=== PATIENT | male | born 1965 | race Caucasian/White ===

== ENCOUNTER 2024-04-14 18:19 | Inpatient (IN) | payer OTHER ==
[~2024-04-14] VITALS: Ht 182.9 cm; Wt 225.9 kg
[~2024-04-14 18:19] MED LIST: CALCAVITD PO; DULO60 PO; GABA300 PO; GLIP5 PO; Hair, Skin & N1 EACH PO; LISHYD2025 PO; METF500 PO; METO50ER PO; OXAP600 PO; SITA100T2 PO; TEMA30 PO
[2024-04-14] MEDS ORDERED: Lactated Ringer's 1,000 ML IV ONE (18:35)
[2024-04-14 18:50] LABS: Base Excess Venous 1.4 mmol/L; Bicarbonate Venous 25.7 mmol/L (24.0-30.0); PCO2 Venous 35.9 mmHg (38-42); pH Blood Venous 7.46 (7.34-7.37)
[2024-04-14 19:15] LABS: BASOPHILS ABSOLUTE AUTO 0.08 K/mm3 (0.00-0.23); BASOPHILS PERCENT AUTO 1 % (0-2); EOSINOPHILS ABSOLUTE AUTO 0.04 K/mm3 (0.00-0.68); EOSINOPHILS PERCENT AUTO 0 % (0-6); Hematocrit 45.6 % (37.0-53.0); Hemoglobin 14.7 g/dL (13.5-17.5); IMMATURE GRAN ABSOLUTE AUTO 0.05 K/mm3 (0.00-0.10); IMMATURE GRAN PERCENT AUTO 0 % (0-1); LYMPHOCYTES PERCENT AUTO 7 % (21-46); MONOCYTES ABSOLUTE AUTO 1.73 K/mm3 (0.16-1.47); MONOCYTES PERCENT AUTO 11 % (4-13); Mean Corpuscular HGB 28.1 pg (26.0-34.0); Mean Corpuscular HGB Conc 32.2 g/dL (31.5-36.5); Mean Corpuscular Volume 87 fL (80-100); NEUTROPHILS ABSOLUTE AUTO 12.17 K/mm3 (1.96-9.15); NEUTROPHILS PERCENT AUTO 80 % (41-73); Platelet Count 286 K/mm3 (150-400); RDW Coefficient Variation 15.3 % (11.7-14.2); RDW Standard Deviation 49.1 fL (35.1-46.3); Red Blood Cell Count 5.23 M/mm3 (4.30-5.90); White Blood Cell Count 15.17 K/mm3 (4.00-11.30)
[2024-04-14 19:16] LABS: Beta-hydroxybutyrate 6.1 mg/dL (0.2-2.8); Free Thyroxine 1.56 ng/dL (0.70-1.60); Magnesium, Blood 1.6 mg/dL (1.6-2.4)
[2024-04-14 19:17] LABS: Thyroid Stimulating Hormone 2.43 uIU/mL (0.360-4.800)
[2024-04-14] MEDS ORDERED: CefTRIAXone Sodium 1,000 MG in NS 100 ML IV ONE (19:50)
[2024-04-14 19:57] LABS: Albumin, Blood 2.8 g/dL (3.4-5.0); Albumin/Globulin Ratio 0.6 (0.8-1.8); Bilirubin, Total 1.1 mg/dL (0.1-1.0); Bun/Creatinine Ratio 22.2 (12.0-20.0); Calcium, Blood 8.9 mg/dL (8.5-10.1); Creatinine, Blood 1.62 mg/dL (0.60-1.20); Globulin, Blood 4.4 g/dL (2.2-4.0); Potassium, Blood 4.2 mmol/L (3.5-5.5); Total Protein, Blood 7.2 g/dL (6.4-8.2)
[2024-04-14] MEDS ORDERED: NS 1,000 ML IV SCH (20:15)
[2024-04-14 20:25] LABS: Source, Urine Clean Catch
[2024-04-14 20:47] LABS: Appearance, Urine Hazy (Clear); Bilirubin, Urine Neg (Neg); Blood, Urine 4+ (Neg); Color, Urine Yellow (P-Yellow); Glucose Qualitative, Urine 4+ (Neg); Ketones, Urine 1+ (Neg); Leukocyte Esterase, Urine 1+ (Neg); Nitrite, Urine Neg (Neg); Protein, Urine 3+ (Neg); Specific Gravity, Urine 1.015 (1.003-1.022); Urobilinogen, Urine 1+ (Normal)
[2024-04-14 20:59] LABS: Amorphous Mod (0-Heavy); Hyaline Casts 0-2 /lpf (0-2); Mucus Light (0-Heavy)
[2024-04-14 21:00] LABS: Bacteria Many /hpf; Squamous Epithelial Cells Few /hpf (Few)
[2024-04-14 21:01] LABS: Transitional Epithelial Cells Rare /hpf (0-Rare)
[2024-04-14 22:11] LABS: CORONAVIRUS COVID-19 AG Negative (NEGATIVE); INFLUENZA A AG Negative (NEGATIVE); INFLUENZA B AG Negative (NEGATIVE)
[2024-04-14] MEDS ORDERED: PRED5 PO (23:22)
[2024-04-14] MEDS ORDERED: LEVSOD75 PO (23:23)
[2024-04-14] MEDS ORDERED: TRAM50 PO (23:24)
[2024-04-14] MEDS ORDERED: DESV50 PO (23:26)
[2024-04-14] MEDS ORDERED: CATAPRES0.1 MG PO (23:27)
[2024-04-14] MEDS ORDERED: DULO60 PO (23:27)
[2024-04-14] MEDS ORDERED: FARXIGA10 MG PO (23:28)
[2024-04-14] MEDS ORDERED: ATOR20 PO (23:29)
[2024-04-14] MEDS ORDERED: FLU VACC TS2024-25(6MOS UP)/PF 45 MCG/0.5 ML SYRINGE IM ONE (23:45)
[2024-04-15 00:10] VITALS: BP 154/89
[2024-04-15] MEDS ORDERED: Magnesium Sulf 2 GM/Water 50ML 50 ML IV ONE (00:10)
[2024-04-15] MEDS ORDERED: NS 1,000 ML IV SCH ×3 (00:45→05:25)
[2024-04-15] MEDS ORDERED: FentaNYL Citrate 50 MCG/ML 2 ML Injection IV PRN (01:00)
[2024-04-15] MEDS ORDERED: Miconazole Nitrate 2% 85 GM PWD TOP PRN (01:05)
[2024-04-15] MEDS ORDERED: GLIP5 PO (01:39)
[2024-04-15] MEDS ORDERED: LODOCO0.5 MG PO (01:42)
[2024-04-15] MEDS ORDERED: PIOG30 PO (01:44)
[2024-04-15] MEDS ORDERED: OXAP600 PO (01:45)
[2024-04-15] MEDS ORDERED: ASPIR 8181 M1 PO (01:47)
[2024-04-15] MEDS ORDERED: LANS15EC PO (01:47)
[2024-04-15] MEDS ORDERED: TOPROL XL50 MG PO (01:49)
[2024-04-15 03:49] VITALS: BP 139/86
[2024-04-15] MEDS ORDERED: HYDROmorphone HCl/Pf 1MG SYR IV PRN (04:40)
[2024-04-15] MEDS ORDERED: Insulin Human Lispro 100 Units/ML 3ML Syringe SC SCH (07:30)
[2024-04-15 07:31] VITALS: BP 145/105
[2024-04-15] MEDS ORDERED: Lactated Ringer's 1,000 ML IV SCH ×2 (08:00→19:00)
--- NOTE | 2024-04-15 08:06 | NUR ---
SHIFT SUMMARY; PATIENT WAS ADMITTED ONTO A NON-BARIATRIC BED. NOT AVAILABLE. ALL WOUNDS SOAKED AND CLEANSED WITH WOUND MANAGING DIRECTOR ATLAS. DRESSED . AT BEDSIDE ABLE TO HELP WITH HISTORY & MEDS. BRAVO CATH PLACED BY MARCUS WILSON, NO URINE RETURNED, EVEN BY END OF SHIFT. IV FLUIDS INFUSING THRU VERY TINY IV, REMAINS PATENT BUT CONCERNING. PATIENT ABLE TO EAT BEFORE MEDICATEING FOR PAIN AND CPAP STARTED.
[2024-04-15] MEDS ORDERED: Heparin Sodium 5000 Units/ML 1ML MDV SC SCH (09:00)
[2024-04-15] MEDS ORDERED: Famotidine 10 MG/ML 2ML Vial IV SCH (09:00)
[2024-04-15] MEDS ORDERED: Lactobacil 2-S.Thermo-Bifido 1 1 Cap PO SCH (09:00)
[2024-04-15 09:34] LABS: BASOPHILS ABSOLUTE AUTO 0.11 K/mm3 (0.00-0.23); BASOPHILS PERCENT AUTO 1 % (0-2); EOSINOPHILS ABSOLUTE AUTO 0.14 K/mm3 (0.00-0.68); EOSINOPHILS PERCENT AUTO 1 % (0-6); Hemoglobin 14.2 g/dL (13.5-17.5); IMMATURE GRAN ABSOLUTE AUTO 0.05 K/mm3 (0.00-0.10); IMMATURE GRAN PERCENT AUTO 0 % (0-1); LYMPHOCYTES ABSOLUTE AUTO 1.96 K/mm3 (0.84-5.20); LYMPHOCYTES PERCENT AUTO 14 % (21-46); MONOCYTES ABSOLUTE AUTO 1.97 K/mm3 (0.16-1.47); MONOCYTES PERCENT AUTO 14 % (4-13); Mean Corpuscular HGB 28.7 pg (26.0-34.0); Mean Corpuscular Volume 87 fL (80-100); Mean Platelet Volume 11.7 fL (9.1-12.4); NEUTROPHILS ABSOLUTE AUTO 10.27 K/mm3 (1.96-9.15); NEUTROPHILS PERCENT AUTO 71 % (41-73); Platelet Count 319 K/mm3 (150-400); RDW Coefficient Variation 15.7 % (11.7-14.2); Red Blood Cell Count 4.95 M/mm3 (4.30-5.90)
[2024-04-15] MEDS ORDERED: CeFAZolin Sodium 2,000 MG in NS 100 ML IV SCH (10:00)
[2024-04-15 10:27] LABS: Albumin, Blood 2.6 g/dL (3.4-5.0); Albumin/Globulin Ratio 0.6 (0.8-1.8); Bilirubin, Total 0.8 mg/dL (0.1-1.0); Bun/Creatinine Ratio 22.4 (12.0-20.0); Creatinine, Blood 1.52 mg/dL (0.60-1.20); Globulin, Blood 4.2 g/dL (2.2-4.0); Potassium, Blood 4.1 mmol/L (3.5-5.5); Total Protein, Blood 6.8 g/dL (6.4-8.2)
[2024-04-15] MEDS ORDERED: NS 250 ML IV PRN ×2 (11:20→23:35)
[2024-04-15] MEDS ORDERED: TraMADol HCl 50 MG Tab PO PRN (12:30)
[2024-04-15] MEDS ORDERED: Temazepam 15 MG Cap PO PRN (12:35)
[2024-04-15 15:28] VITALS: BP 158/88
[2024-04-15] MEDS ORDERED: Lisinopril 10 MG Tab PO SCH (16:00)
[2024-04-15] MEDS ORDERED: Metoprolol Succinate 50 MG TABCR PO SCH (16:00)
--- NOTE | 2024-04-15 18:36 | NUR ---
SHIFT SUMMARY PT CONT LEVEL OF CARE. PT NOTED TO BE A&OX4 AND MAX ASSIST. BRAVO CHANGED THIS SHIFT D/T BRAVO NOT DRAINING PROPRER AND PT NOTED TO HAVE 800ML+ IN HIS BLADDER. PT WOUNDS CHANGED THIS SHIFT PER ORDERS RECEIVED BY PHYSICIAN. PT MOVED TO ROOM 352 FROM ROOM 345 THIS SHIFT PT NEED A ROOM WITH A DOUBLE LIFT. PT NOTED TO WORK WITH THERAPY THIS SHIFT.
[2024-04-15 19:48] VITALS: BP 157/80
[2024-04-15] MEDS ORDERED: Acetaminophen 325 MG TABLET PO PRN (20:20)
[2024-04-15] MEDS ORDERED: Gabapentin 300 MG Cap PO SCH (21:00)
--- NOTE | 2024-04-16 01:00 | NUR ---
HOSPITALIST CONTACTED. HOSPITALIST CONTACTED D/T PATIENT CHANGE IN CONDITION-PATIENT HAS CHANGE IN COGNITION-WHEN ASKED WHERE HE WAS PATIENT RESPONDED "[facility]" REORIENTED PATIENT THAT HE IS IN [facility]-PATIENT REPORTS THAT HE "WAS SEEING ART ON THE CEILING". HOSPITALIST NOTIFIED OF CHANGE AND REQUESTED TO COME SEE PATIENT. [address] ZAPATA ORDERED LABS-SEE LABS. DR. ZAPATA ORDERED FOR ECHO AND PALLIATIVE CARE ORDER.
[2024-04-16 01:47] LABS: BASOPHILS ABSOLUTE AUTO 0.12 K/mm3 (0.00-0.23); BASOPHILS PERCENT AUTO 1 % (0-2); EOSINOPHILS ABSOLUTE AUTO 0.43 K/mm3 (0.00-0.68); EOSINOPHILS PERCENT AUTO 4 % (0-6); Hematocrit 41.1 % (37.0-53.0); Hemoglobin 13.2 g/dL (13.5-17.5); IMMATURE GRAN ABSOLUTE AUTO 0.12 K/mm3 (0.00-0.10); IMMATURE GRAN PERCENT AUTO 1 % (0-1); LYMPHOCYTES ABSOLUTE AUTO 2.14 K/mm3 (0.84-5.20); LYMPHOCYTES PERCENT AUTO 20 % (21-46); MONOCYTES ABSOLUTE AUTO 1.31 K/mm3 (0.16-1.47); MONOCYTES PERCENT AUTO 12 % (4-13); Mean Corpuscular HGB 28.3 pg (26.0-34.0); Mean Corpuscular HGB Conc 32.1 g/dL (31.5-36.5); Mean Corpuscular Volume 88 fL (80-100); Mean Platelet Volume 11.8 fL (9.1-12.4); NEUTROPHILS ABSOLUTE AUTO 6.76 K/mm3 (1.96-9.15); NEUTROPHILS PERCENT AUTO 62 % (41-73); Platelet Count 268 K/mm3 (150-400); RDW Coefficient Variation 15.8 % (11.7-14.2); Red Blood Cell Count 4.66 M/mm3 (4.30-5.90); White Blood Cell Count 10.88 K/mm3 (4.00-11.30)
[2024-04-16 01:57] LABS: Albumin, Blood 2.4 g/dL (3.4-5.0); Albumin/Globulin Ratio 0.6 (0.8-1.8); Bilirubin, Total 0.6 mg/dL (0.1-1.0); Bun/Creatinine Ratio 23.4 (12.0-20.0); Calcium, Blood 8.8 mg/dL (8.5-10.1); Creatinine, Blood 1.54 mg/dL (0.60-1.20); Potassium, Blood 3.8 mmol/L (3.5-5.5); Total Protein, Blood 6.4 g/dL (6.4-8.2)
[2024-04-16] MEDS ORDERED: Lactated Ringer's 1,000 ML IV SCH (02:40)
[2024-04-16 02:45] LABS: Bicarbonate Venous 26.3 mmol/L (24.0-30.0); PCO2 Venous 35.9 mmHg (38-42); pH Blood Venous 7.46 (7.34-7.37)
--- NOTE | 2024-04-16 05:07 | NUR ---
SHIFT SUMMARY. PATIENT IS A&OX4. DURING THE NIGHT PATIENT DISORIENTED-SEE PREVIOUS NOTE. PATIENT HAVING TREMORS TONIGHT, PATIENT HAD LOW GRADE FEVER EARLIER THIS SHIFT WITH AN IMPROVED TEMPERATURE BELOW 99 DEGREES FARENHEIT. PATIENT HAS CPAP ON. PATIENT COGNITION DECREASED SINCE ADMITTANCE ON 04/15/24. PATIENT TO HAVE AN ECHO TODAY 04/16/24. BED IS LOCKED IN THE LOWEST POSITION WITH CALL LIGHT IN REACH. CARE IS ONGOING.
[2024-04-16 05:22] VITALS: BP 149/87
[2024-04-16] MEDS ORDERED: Levothyroxine Sodium 0.075 MG Tab PO SCH (06:00)
[2024-04-16 07:44] VITALS: BP 158/97
[2024-04-16] MEDS ORDERED: Colchicine 0.6 MG TAB PO SCH (09:00)
[2024-04-16] MEDS ORDERED: DULoxetine HCL 60 MG Capsule DR PO SCH ×2 (09:00→13:00)
[2024-04-16] MEDS ORDERED: Lisinopril 10 MG Tab PO SCH (09:00)
[2024-04-16] MEDS ORDERED: Aspirin 81 MG TabEC PO SCH (09:00)
[2024-04-16] MEDS ORDERED: Lansoprazole 15 MG TAB.RAP.DR PO SCH (09:00)
[2024-04-16] MEDS ORDERED: Venlafaxine HCl 75 MG CapCR PO SCH ×2 (09:00→13:00)
[2024-04-16] MEDS ORDERED: Metoprolol Succinate 50 MG TABCR PO SCH (09:00)
[2024-04-16] MEDS ORDERED: HydroCHLOROthiazide 25 mg Tab PO SCH (09:00)
[2024-04-16 09:51] LABS: BASOPHILS ABSOLUTE AUTO 0.14 K/mm3 (0.00-0.23); BASOPHILS PERCENT AUTO 1 % (0-2); EOSINOPHILS ABSOLUTE AUTO 0.61 K/mm3 (0.00-0.68); EOSINOPHILS PERCENT AUTO 5 % (0-6); Hematocrit 40.9 % (37.0-53.0); Hemoglobin 13.2 g/dL (13.5-17.5); IMMATURE GRAN ABSOLUTE AUTO 0.08 K/mm3 (0.00-0.10); IMMATURE GRAN PERCENT AUTO 1 % (0-1); LYMPHOCYTES ABSOLUTE AUTO 2.27 K/mm3 (0.84-5.20); LYMPHOCYTES PERCENT AUTO 18 % (21-46); MONOCYTES ABSOLUTE AUTO 1.54 K/mm3 (0.16-1.47); MONOCYTES PERCENT AUTO 12 % (4-13); Mean Corpuscular HGB 28.3 pg (26.0-34.0); Mean Corpuscular HGB Conc 32.3 g/dL (31.5-36.5); Mean Corpuscular Volume 88 fL (80-100); Mean Platelet Volume 12.1 fL (9.1-12.4); NEUTROPHILS PERCENT AUTO 63 % (41-73); Platelet Count 282 K/mm3 (150-400); RDW Coefficient Variation 15.8 % (11.7-14.2); RDW Standard Deviation 50.7 fL (35.1-46.3); Red Blood Cell Count 4.66 M/mm3 (4.30-5.90); White Blood Cell Count 12.64 K/mm3 (4.00-11.30)
--- NOTE | 2024-04-16 10:01 | NUR ---
AM NOTE ASSUMED CARE AT APPROX. 0700. BEDSIDE REPORT COMPLETE. PATIENT ON CPAP BUT AWAKE. RESIDENT DOCTORS IN ROOM AND UPDATE GIVEN ON EVENTS OVERNIGHT. EKG COMPLETED PER ORDER AND SHOWN TO DR. PETE. PT AND OT WORKED WITH PATIENT THIS MORNING. BREAK NURSE PASSED MORNING MEDICATIONS. VERBAL ORDER TO FINISH THIS BAG OF LR AND DISCONTINUE ORDER. BRAVO PATENT AND DRAINING TO GRAVITY. MULTIPLE WOUNDS AND DRESSINGS. PICTURES IN CHART. PATIENT A&OX4. PATIENT USES CALL LIGHT APPROPRIATELY. REPORT GIVEN TO FAMILIA AT APPROX. 0945 TO ASSUME CARE.
[2024-04-16 10:13] LABS: Albumin, Blood 2.5 g/dL (3.4-5.0); Albumin/Globulin Ratio 0.6 (0.8-1.8); Bilirubin, Total 0.6 mg/dL (0.1-1.0); Bun/Creatinine Ratio 23.4 (12.0-20.0); Creatinine, Blood 1.45 mg/dL (0.60-1.20); Globulin, Blood 4.1 g/dL (2.2-4.0); Potassium, Blood 4.2 mmol/L (3.5-5.5); Total Protein, Blood 6.6 g/dL (6.4-8.2)
--- NOTE | 2024-04-16 13:30 | NUR ---
WOUND CARE COMPLETED. WOUNDS TO THE BILAT ELBOWS CLEANED AND COVERED WITH XEROFORM AND MEPILEX DRESSING. WOUNDS TO THE RIGHT CHEST AND BILAT LOWER EXTREMITIES CLEANED AND COVERED WITH XEROFORM AND ABD PADS. ABDOMINAL FOLDS AND GROIN CLEANED AND DRIED AND MICONAZOLE POWDER APPLIED. INNER DRY APPLIED WITHIN THE ABDOMINAL FOLD. PT MEDICATED WITH TRAMADOL PER MAR PRIOR TO DRESSING CHANGE.
[2024-04-16 16:32] VITALS: BP 147/75
[2024-04-16] MEDS ORDERED: Apixaban 5 MG Tab PO SCH (17:00)
[2024-04-16] MEDS ORDERED: PROBENECID-COL1 EACH PO (17:02)
[2024-04-16] MEDS ORDERED: LISINOPRIL-HCT1 EAC1 PO (17:03)
[2024-04-16] MEDS ORDERED: TRAMADOL HCL PO (17:04)
[2024-04-16] MEDS ORDERED: ACETAMINOPHEN PO (17:04)
--- NOTE | 2024-04-16 18:46 | NUR ---
SHIFT SUMMARY PT IS A/OX4, LIFT PT. WOUNDS TO THE BILAT ELBOWS, RIGHT CHEST, STOMACH, AND BILAT LOWER EXTREMITIES. WOUNDS DRESSING CHANGED THIS AFTERNOON, SEE PREVIOUS NOTE. ON RA. TELE RUNNING AFIB/AFLUTTER, ELIQUIS STARTED THIS EVENING. CONTINUING IV ANTIBIOTICS. PT REPORTS THAT WOUNDS ARE D/T HAVING A GLF AT HOME AND BEING ON THE FLOOR FOR 4 DAYS, PT AND FAMILY UNABLE TO GET THE PT UP DESPITE EFFORTS AND EMS WAS EVENTUALLY CALLED.
[2024-04-16 19:08] VITALS: BP 147/81
[2024-04-17 03:45] VITALS: BP 129/99
--- NOTE | 2024-04-17 04:07 | NUR ---
SHIFT SUMMARY ADMITTED FOR ADMITTED FOR GLF/RHABDOMYOLYSIS, CELLULITIS OF BLE. FULL CODE. IV ANTIB RX ARE SCHEDULED. PLAN IS FOR SNF PLACEMENT. BRAVO IN PLACE FOR RETENTION. [facility] CBG'S - LOW SS. ON RA DURING DAY, CPAP @ HS. PT AND OT ARE SCHEDULED. HE IS BEDBOUND, LIFT PATIENT. TELEMETRY: AFLUTTER @ 82 BPM. CARDIAC DIET. HE IS ON ELIQUIS. MULTIPLE WOUNDS ON HIS ELBOWS, CHEST, BLE, ABDOMEN. DAILY DRESSING CHANGES. 3+ EDEMA TO BLE. MULTIPLE RECENT GLF'S REPORTED AT HOME.
[2024-04-17 06:11] LABS: BASOPHILS ABSOLUTE AUTO 0.11 K/mm3 (0.00-0.23); BASOPHILS PERCENT AUTO 1 % (0-2); EOSINOPHILS ABSOLUTE AUTO 0.83 K/mm3 (0.00-0.68); EOSINOPHILS PERCENT AUTO 7 % (0-6); Hematocrit 40.1 % (37.0-53.0); Hemoglobin 12.9 g/dL (13.5-17.5); IMMATURE GRAN ABSOLUTE AUTO 0.11 K/mm3 (0.00-0.10); IMMATURE GRAN PERCENT AUTO 1 % (0-1); LYMPHOCYTES ABSOLUTE AUTO 1.93 K/mm3 (0.84-5.20); LYMPHOCYTES PERCENT AUTO 16 % (21-46); MONOCYTES ABSOLUTE AUTO 1.45 K/mm3 (0.16-1.47); MONOCYTES PERCENT AUTO 12 % (4-13); Mean Corpuscular HGB 28.3 pg (26.0-34.0); Mean Corpuscular HGB Conc 32.2 g/dL (31.5-36.5); Mean Corpuscular Volume 88 fL (80-100); Mean Platelet Volume 11.5 fL (9.1-12.4); NEUTROPHILS ABSOLUTE AUTO 7.35 K/mm3 (1.96-9.15); NEUTROPHILS PERCENT AUTO 63 % (41-73); Platelet Count 281 K/mm3 (150-400); RDW Coefficient Variation 15.6 % (11.7-14.2); RDW Standard Deviation 50.8 fL (35.1-46.3); Red Blood Cell Count 4.56 M/mm3 (4.30-5.90); White Blood Cell Count 11.78 K/mm3 (4.00-11.30)
[2024-04-17 06:33] LABS: Albumin, Blood 2.4 g/dL (3.4-5.0); Albumin/Globulin Ratio 0.6 (0.8-1.8); Bilirubin, Total 0.6 mg/dL (0.1-1.0); Bun/Creatinine Ratio 23.1 (12.0-20.0); Calcium, Blood 8.8 mg/dL (8.5-10.1); Creatinine, Blood 1.34 mg/dL (0.60-1.20); Potassium, Blood 4.7 mmol/L (3.5-5.5); Total Protein, Blood 6.4 g/dL (6.4-8.2)
[2024-04-17 07:07] VITALS: BP 149/67
[2024-04-17] MEDS ORDERED: Magnesium Hydroxide Conc 10 ML UDC PO PRN (09:50)
[2024-04-17] MEDS ORDERED: Polyethylene Glycol 3350 17 gm PO PRN (09:50)
[2024-04-17] MEDS ORDERED: HydroCHLOROthiazide 25 mg Tab PO SCH (10:00)
[2024-04-17] MEDS ORDERED: Arginine/Glutamine/Calcium Hmb 1 Packet PO SCH (10:00)
[2024-04-17] MEDS ORDERED: Docusate Sodium 100 MG Cap PO SCH ×2 (10:15→21:00)
[2024-04-17] MEDS ORDERED: Sennosides 8.6 MG Tab PO SCH ×2 (10:15→21:00)
--- NOTE | 2024-04-17 10:15 | NUR ---
PATIENT WITH WHEEZES ON EXPIRATION AT THIS TIME. DENIES SHORTNESS OF BREATH NOW BUT STATES OCCAISIONALY HE IS SOB. COUGH WITH SPUTUM, HE IS UNSURE OF COLOR. STATES HE TAKES AN ALBUTEROL INHALER OCCAISIONALLY AT HOME BUT HAS NOT HAD ONE IN SEVERAL MONTHS. DR PETE NOTIFIED, NO NEW ORDERS.
[2024-04-17 16:13] VITALS: BP 152/66
--- NOTE | 2024-04-17 18:42 | NUR ---
SHIFT SUMMARY PATIENT MEDICATED TODAY FOR PAIN, HE WAS UP IN CHAIR USING LIFT FOR 2 HOURS THIS AM BEFORE LUNCH. HE IS AOX4, ABLE TO MAKE NEEDS KNOWN. HE IS NOT ABLE TO STAND TODAY BUT ABLE TO PULL SELF FORWARD FOR BATHING IN CHAIR. WOUNDS TO TRUNK AND EXTREMETIES DRESSED PER WOUND CARE ORDERS. BED IN LOW POSITION, CALL LIGHT IN REACH.
[2024-04-17 19:20] VITALS: BP 148/69
[2024-04-18 04:40] VITALS: BP 145/81
--- NOTE | 2024-04-18 05:37 | NUR ---
AAOX4, FLAT AFFECTIVE, COOPERATIVE WITH CARES. CEILING LIFT FOR REPOSITIONING AND TO CHAIR. RA DURING DAY AND CPAP @ HS. TELE, AFIB @ 67 WITH A BBB. WOUNDS AND REDNESS TO BLE AND RUE. CHANGED L INNER THIGH AND R ELBOW DRESSING D/T SATURATED. NO ACUTE NEEDS OR CONCERNS THROUGHOUT THE NIGHT.
[2024-04-18 06:05] LABS: BASOPHILS ABSOLUTE AUTO 0.11 K/mm3 (0.00-0.23); BASOPHILS PERCENT AUTO 1 % (0-2); EOSINOPHILS ABSOLUTE AUTO 0.87 K/mm3 (0.00-0.68); EOSINOPHILS PERCENT AUTO 8 % (0-6); Hematocrit 38.5 % (37.0-53.0); Hemoglobin 12.8 g/dL (13.5-17.5); IMMATURE GRAN PERCENT AUTO 2 % (0-1); LYMPHOCYTES ABSOLUTE AUTO 2.05 K/mm3 (0.84-5.20); LYMPHOCYTES PERCENT AUTO 18 % (21-46); MONOCYTES ABSOLUTE AUTO 1.44 K/mm3 (0.16-1.47); MONOCYTES PERCENT AUTO 13 % (4-13); Mean Corpuscular HGB 28.8 pg (26.0-34.0); Mean Corpuscular HGB Conc 33.2 g/dL (31.5-36.5); Mean Corpuscular Volume 87 fL (80-100); Mean Platelet Volume 11.6 fL (9.1-12.4); NEUTROPHILS ABSOLUTE AUTO 6.45 K/mm3 (1.96-9.15); NEUTROPHILS PERCENT AUTO 58 % (41-73); Platelet Count 271 K/mm3 (150-400); RDW Coefficient Variation 15.4 % (11.7-14.2); RDW Standard Deviation 48.6 fL (35.1-46.3); Red Blood Cell Count 4.45 M/mm3 (4.30-5.90); White Blood Cell Count 11.12 K/mm3 (4.00-11.30)
[2024-04-18 06:38] LABS: Bun/Creatinine Ratio 20.5 (12.0-20.0); Creatinine, Blood 1.32 mg/dL (0.60-1.20); Potassium, Blood 4.2 mmol/L (3.5-5.5)
[2024-04-18 07:04] VITALS: BP 163/78
[2024-04-18] MEDS ORDERED: Lisinopril 20 MG Tab PO SCH (09:00)
[2024-04-18 16:33] VITALS: BP 160/90
--- NOTE | 2024-04-18 17:32 | NUR ---
SUMMARY- PT A/O X4, PT USES CALL LIGHT, ABLE TO MAKE NEEDS KNOWN. BARIATRIC BED, ROUTINE TURNS. PT ON TELE A-FIB 60-70'S. VSS, AFIBRILE. BLOOD SUGARS BEING MONITORED AND SS COVERAGE. PT HAS EXCORIATIONS AND MARTINO TO ANT PORTION. SKIN CARE PERFORMED 1500- CLEANSED AND APPLIED ALL NEW XEREFORM TO OPEN AREAS. ALL FOLDS AND PANUS CLEANSED, MICONAZOLE TO FOLDS. GAN LINER TO PREVENT SKIN TO SKIN CONTACT. BRAVO IN USE, AIDING IN KEEPING SKIN CLEAN AND DRY WHILE WOUNDS HEALING. PREMEDICATED WITH FENTANYL 25MCG FOR PAIN. PT STATES PAIN WAS MINIMALLY RELEIVED DURING DRESSING CHANGE. PT TOLERATING FOOD AND FLUIDS. HAD XX LG SOFT BROWN BM TODAY. WILL REPORT TO SOPHIE [facility]
[2024-04-18 19:40] VITALS: BP 150/94
[2024-04-19 04:48] VITALS: BP 146/69
--- NOTE | 2024-04-19 05:15 | NUR ---
AAOX4, PLEASANT AND COOPERATIVE WITH CARES. BEDREST WITH THE LIFT USED FOR REPOSITIONING, ALONG WITH BED CONTROLS PT DECLINES TO ELEVATE LEGS, FEELS IT MAKES LEGS MORE PAINFUL AND CAUSES SOB. TELE IN PLACE. CPAP @ HS. DRESSING CDI TO ELBOWS, BLE AND ABDOMEN. PLAN IS DC TO EN.
[2024-04-19 06:26] LABS: BASOPHILS PERCENT AUTO 1 % (0-2); EOSINOPHILS ABSOLUTE AUTO 0.76 K/mm3 (0.00-0.68); EOSINOPHILS PERCENT AUTO 6 % (0-6); Hematocrit 37.9 % (37.0-53.0); Hemoglobin 12.7 g/dL (13.5-17.5); IMMATURE GRAN ABSOLUTE AUTO 0.24 K/mm3 (0.00-0.10); IMMATURE GRAN PERCENT AUTO 2 % (0-1); LYMPHOCYTES ABSOLUTE AUTO 2.17 K/mm3 (0.84-5.20); LYMPHOCYTES PERCENT AUTO 18 % (21-46); MONOCYTES ABSOLUTE AUTO 1.65 K/mm3 (0.16-1.47); MONOCYTES PERCENT AUTO 14 % (4-13); Mean Corpuscular HGB 28.9 pg (26.0-34.0); Mean Corpuscular HGB Conc 33.5 g/dL (31.5-36.5); Mean Corpuscular Volume 86 fL (80-100); Mean Platelet Volume 11.1 fL (9.1-12.4); NEUTROPHILS ABSOLUTE AUTO 6.98 K/mm3 (1.96-9.15); NEUTROPHILS PERCENT AUTO 59 % (41-73); Platelet Count 266 K/mm3 (150-400); RDW Coefficient Variation 15.1 % (11.7-14.2); RDW Standard Deviation 47.6 fL (35.1-46.3)
[2024-04-19 06:41] LABS: Bun/Creatinine Ratio 22.7 (12.0-20.0); Calcium, Blood 9.1 mg/dL (8.5-10.1); Creatinine, Blood 1.19 mg/dL (0.60-1.20); Potassium, Blood 4.4 mmol/L (3.5-5.5)
[2024-04-19 07:24] VITALS: BP 155/67
[2024-04-19] MEDS ORDERED: Insulin Human Lispro 100 Units/ML 3ML Syringe SC SCH ×2 (08:55→11:30)
[2024-04-19] MEDS ORDERED: AmLODIPine Besylate 5 MG Tab PO SCH (09:00)
[2024-04-19 10:16] VITALS: BP 183/79
[2024-04-19 14:27] VITALS: BP 170/61
[2024-04-19] MEDS ORDERED: AMLO5 PO (16:13)
[2024-04-19] MEDS ORDERED: ELIQUIS5 M2 PO (16:14)
[2024-04-19] MEDS ORDERED: CEPH500 PO (16:18)
[2024-04-19] MEDS ORDERED: LACT (16:19)
[2024-04-19] MEDS ORDERED: VISBIOME 112.51 EACH PO (16:21)
--- NOTE | 2024-04-19 17:40 | NUR ---
DISCHARGE SUMMARY PT A&OX4. PT ADMITTED DUE TO CELLULITIS AND RHABDO. PT IS A LIFT PT. PT EATS ADEQUATE. PT WORKED WITH PT AND OT TODAY. PT GOT APPROVED FOR REHAB AT [facility]. IV D/C. TELE D/C. GAVE REPORT TO [facility]. CALLED DR. MCKOY TO SEE IF IF PT WAS GETTING DISCHARGED WITH [facility] BRAVO REPORTED TO REMOVED SINCE IT WAS PUT IN FOR STRICT I&O. BRAVO D/C. NOTIFIED DR. MCKOY TO INCLUDE WOUND ORDERS IN DISCHARGE, DR. MCKOY REPORTED TO WRITE OUT ORDERS AND SHE WILL COME SIGN AND FAX TO FACILITY. EDUCATED PT ON DISCHARGE INSTRUCTIONS AND MEDS. [facility] TRANSPORT CAME TO TRANSPORT PT VIA [employer]. PT TURNED Q2 HOURS. PT ON ROOM AIR DURING SHIFT. PT WEARS CPAP AT NIGHT. CONT. PULSE OX WAS ON PT TODAY. SPO2 WAS 98%. PT REPORTS NOT GETTING INSULIN AT HOME, PT WAS ON A CORRECTION SCALE, PT RECEIVED INSULIN AT BREAKFAST, AND LUNCH. PT CALLED APPROPRIATELY DURING SHIFT, AND WAS MEDICATED ONCE FOR CHRONIC BACK PAIN.
== END 2024-04-19 17:21 | DRG 871 ==
LOC: ER 18:19 → MEDS 22:02 → ERHOLD 22:02 → MEDS 04-15 00:06
PROVIDERS: Student in an Organized Health Care Education/Training Program; ADMIT Internal Medicine
DX: A41.9 Sepsis, unspecified organism (principal); I21.A1 Myocardial infarction type 2; M62.82 Rhabdomyolysis; Z68.45 Body mass index [BMI] 70 or greater, adult; N17.9 Acute kidney failure, unspecified; L03.116 Cellulitis of left lower limb; L03.115 Cellulitis of right lower limb; I48.92 Unspecified atrial flutter; E11.40 Type 2 diabetes mellitus with diabetic neuropathy, unspecified; R65.20 Severe sepsis without septic shock; F32.A Depression, unspecified; E66.01 Morbid (severe) obesity due to excess calories; G25.81 Restless legs syndrome; E86.0 Dehydration; E11.65 Type 2 diabetes mellitus with hyperglycemia; N18.31 Chronic kidney disease, stage 3a; I12.9 Hypertensive chronic kidney disease with stage 1 through stage 4 chronic kidney disease, or unspecified chronic kidney disease; E11.22 Type 2 diabetes mellitus with diabetic chronic kidney disease; Z28.21 Immunization not carried out because of patient refusal; Z79.84 Long term (current) use of oral hypoglycemic drugs; Z79.899 Other long term (current) drug therapy; E03.9 Hypothyroidism, unspecified
CPT/HCPCS: 36415; 51701; 73560-LT; 73560-RT; 80048; 80053; 81001; 82010; 82550; 82803; 82947; 83605; 83690; 83735; 83880; 84439; 84443; 84484; 85025; 87040; 87086; 87428-QW; 93005; 93010; 94660; 94760; 94762; 96374; 97110; 97112; 97162; 97166; 97530; 99285-25; A9270; C8929; J0690; J0696; J1644; J3010; J3475; J7030; J7050; J7120; Q9957